=== PATIENT | female | born 1955 | race Caucasian/White ===

== ENCOUNTER → 2022-03-24 10:15 | Outpatient (CLI) | payer MEDICARE, BC, SELFPAY ==
--- NOTE | ~2022-03-24 | DEXA_ITS ---
Bone Density Report Name: GREG SUNG Age: 66 Sex: Female Ethnicity: White Date of : 1955 Indication: osteopenia; height loss; asthma or emphysema; rheumatoid arthritis; postmenopausal Referring Provider: James Hickman Study: Bone densitometry was performed. Exam Date: March 24, 2022 Accession number: [id number] Bone Density: Region BMD T-score Z-score Classification AP Spine (L1-L4) 0.894 -1.4 0.4 Osteopenia Femoral Neck (Left) 0.815 -0.3 1.2 Normal Total Hip (Left) 0.904 -0.3 0.9 Normal Femoral Neck (Right) 0.823 -0.2 1.3 Normal Total Hip (Right) 0.887 -0.5 0.8 Normal Total Hip Mean 0.896 -0.4 0.9 Normal World Health Organization criteria for BMD impression classify patients as: Normal (T-score at or above -1.0), Osteopenia (T-score between -1.0 and -2.5), or Osteoporosis (T-score at or below -2.5). 10-year Fracture Risk(1): Major Osteoporotic Fracture 8.5% Hip Fracture 0.4% Reported Risk Factors: [place] (), Neck BMD=0.815, BMI=35.2, rheumatoid arthritis (1) FRAX(R) Version 3.08. Fracture probability calculated for an untreated patient. Fracture probability may be lower if the patient has received treatment. Previous Exams: Region Exam Age BMD T-score BMD Change BMD Change Date g/cm2 vs Baseline vs Previous AP Spine(L1-L4) 03/24/2022 66 0.894 -1.4 0.002 0.002 06/10/2016 61 0.892 -1.4 Total Hip(Left) 03/24/2022 66 0.904 -0.3 -0.086* -0.086* 06/10/2016 61 0.989 0.4 Total Hip(Right) 03/24/2022 66 0.887 -0.5 -0.055* -0.055* 06/10/2016 61 0.941 0.0 *Denotes significance at 95% confidence level, LSC for AP Spine = 0.022 g/cm2, LSC for Total Hip = 0.027 g/cm2 Clinical Information Provided by Patient: Has rheumatoid arthritis Has used the following medications: Vitamin D, Calcium Has the following medical conditions: Asthma or Emphysema Patient maximum height was 67 Menopause Age: 50 Does not regularly consume dairy products Drinks caffeinated beverages Onset of menses at age 16 Number of children 4 Impression: The patient has low bone mass, based on the Total Spine T-score. The patient has an estimated ten-year risk of hip fracture of 0.4% and an estimated ten-year risk of major fracture of 8.5%, based on the WHO FRAX algorithm. The BMD for the Total Hip(Left) decreased, changing by -0.086 since the last DXA exam. The BMD for the Total Hip(
--- NOTE | ~2022-03-24 | MM_ITS ---
EXAMINATION: MM screening ana BI w stfefi HISTORY: Screening mammogram TECHNIQUE: Craniocaudal and mediolateral oblique 3-D tomosynthesis images were obtained and synthetic 2-D images were generated. CAD analysis was submitted and interpreted. COMPARISON: 06/21/2018, 06/10/2016 bilateral screening mammogram examinations BREAST PARENCHYMAL COMPOSITION: There are scattered areas of fibroglandular density. FINDINGS: There is no evidence of suspicious mass, calcification, or architectural distortion to sugg est malignancy in either breast. There has been no suspicious interval change. IMPRESSION: 1. No mammographic evidence of malignancy. 2. Recommend routine screening mammography in one year. BI-RADS Category 1: Negative Reviewed, dictated and finalized at location A.
== END ==
PROVIDERS: PCP Family Medicine; Visit Provider Family Medicine
DX: Z12.31 Encounter for screening mammogram for malignant neoplasm of breast (principal); Z78.0 Asymptomatic menopausal state; M85.88 Other specified disorders of bone density and structure, other site
CPT/HCPCS: 77063; 77067; 77080

== ENCOUNTER 2022-07-23 07:52 | Outpatient (CLI) | payer MEDICARE, BC, SELFPAY | END 2022-07-23 07:53 | disposition home or self-care (01) | LOC: ANHAUDIO 07:53 | PROVIDERS: PCP Family Medicine; Visit Provider Physician Assistant Medical | DX: H90.3 Sensorineural hearing loss, bilateral (principal) | CPT/HCPCS: 92557; 92567 ==

== ENCOUNTER 2022-11-11 09:00 | Outpatient (RCR) | payer MEDICARE, BC, SELFPAY | END 2022-11-11 23:59 | disposition home or self-care (01) | LOC: ANHAUDIO 09:00 | PROVIDERS: PCP Family Medicine; Visit Provider Family Medicine | DX: Z46.1 Encounter for fitting and adjustment of hearing aid (principal); H91.90 Unspecified hearing loss, unspecified ear | CPT/HCPCS: 99199; V5261 ==

== ENCOUNTER 2024-02-12 11:35 | Observation (INO) | payer MEDICARE, BC, SELFPAY ==
[2024-02-12] VITALS (20 sets, daily range): BP systolic 111–135; BP diastolic 62–76; PULSE 58–67; RESP 9–20; TEMP 36–36.7; O2SAT 95–100; BMI 30.6
--- NOTE | ~2024-02-12 | CT_ITS ---
EXAMINATION: CT cervical spine wo con DATE: 02/12/2024 13:34 INDICATION: Neck pain after fall TECHNIQUE: Computed tomography (CT) of the cervical spine was performed without intravenous contrast. The dose-length product was 348 mGy-cm. Automated exposure control and iterative reconstruction tech nique were employed. COMPARISON: None FINDINGS: Reversal of cervical lordosis. Craniovertebral junction is normal. Odontoid process is norm al. Severe degenerative disc disease at C4-5, C5-6 and C6-7. There is degenerative anterolisthesis at C2-3 and C3-4. No evidence for perched facet. There is multilevel uncinate and facet hypertrophy. Th ere is scarring in the lung apices. No significant paraspinal soft tissue abnormality. IMPRESSION: 1. No acute abnormality of the cervical spine. 2: Severe cervical spondylosis. Reviewed, dictated and finalized at location A.
--- NOTE | ~2024-02-12 | XR_ITS ---
XR shoulder LT min 2V 02/12/2024 13:24 Indication: Left shoulder pain Procedure: 4 views left shoulder Comparison: No prior studies for comparison. 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 No fracture or traumatic malali gnment. No soft tissue abnormality. No foreign body. Impression: 1: No acute fracture. Reviewed, dictated and finalized at location A. Impression: 1: No acute fracture.
--- NOTE | ~2024-02-12 | CT_ITS ---
EXAMINATION: CT brain wo con DATE: 02/12/2024 13:35 INDICATION: Syncope TECHNIQUE: Computed tomography (CT) of the cervical spine was performed without intravenous contrast. The dose-length product was 605 mGy-cm. Automated exposure control and iterative reconstruction tech [id number] were employed. COMPARISON: None FINDINGS: Normal brain parenchymal volume. No acute hemorrhage, infarction, mass or mass effect. No m idline shift. Basilar cisterns are patent. No ventriculomegaly.Paranasal sinuses and mastoids are pne umatized. No depressed skull fractures. IMPRESSION: 1. No acute intracranial abnormality. Reviewed, dictated and finalized at location A.
--- NOTE | ~2024-02-12 | XR_ITS ---
EXAMINATION: XR chest 1V portable 02/12/2024 13:24 INDICATION: Syncope PROCEDURE: AP portable chest COMPARISON: 10/13/2016 FINDINGS: The lungs are clear. The cardiomediastinal silhouette is within normal limits. There are no pleural effusions. There is no pneumothorax suspected. IMPRESSION: 1: NO ACUTE CARDIOPULMONARY DISEASE. Reviewed, dictated and finalized at location A.
--- NOTE | ~2024-02-12 | US_ITS ---
EXAMINATION: US carotid duplex BI DATE: 02/13/2024 10:35 INDICATION: TECHNIQUE: Grayscale, color Doppler, and pulsed Doppler images of the cervical carotid arteries were obtained. The degree of vessel stenosis is placed in one of the following categories: normal, <50%, 5 0-69%, >=70% but less than near-occlusion, near-occlusion, or total occlusion. Note that percent sten osis relative to normal distal artery lumen diameter is indirectly measured from velocity measurement s as described by Quinten, et al. Radiology 2003; 229:340-346. Notes: Normal: Peak systolic velocity <125 centimeters/sec and no plaque <50%. Peak systolic velocity <125 ( EDV <40; ICA/CCA PSV ratio <2.0; used these factors only a tandem lesions or low cardiac output or co ntralateral disease) 50-69 %: PSV 125-230 (EDV 40-100; ratio 2-4) >= 70% but less than near occlusion: PSV greater than 230 (EDV > 100; ratio> 4.0) Near Occlusion: PSV that is variable; markedly narrowed lumen Occlusion: Absent flow on color/spectral Doppler and no lumen on gomez scale. COMPARISON: None. FINDINGS: RIGHT: The right common carotid artery (CCA) peak systolic velocity (PSV) is 65 cm/s. The right internal car otid artery (ICA) PSV is 60 cm/s. The right ICA end-diastolic velocity (EDV) is 21 cm/s. The right IC A/CCA PSV ratio is 0.9. The external carotid artery (ECA) PSV is 91 cm/s. There is antegrade flow in the right vertebral artery. LEFT: The left CCA PSV is 92 cm/s. The left ICA PSV is 78 cm/s. The left ICA EDV is 26 cm/s. The left ICA/C CA PSV ratio is 0.9. The ECA PSV is 45 cm/s. There is antegrade flow in the left vertebral artery. IMPRESSION: 1. Less than 50% stenosis in the right internal carotid artery by sonographic criteria. 2. Less than 50% stenosis in the left internal carotid artery by sonographic criteria. Reviewed, dictated and finalized at location B. IMPRESSION: 1. Less than 50% stenosis in the right internal carotid artery by sonographic domo cintron. 2. Less than 50% stenosis in the left internal carotid artery by sonographic devorah villagran.
--- NOTE | ~2024-02-12 | US_ITS ---
EXAMINATION:US venous doppler LE LT INDICATION:Left calf tenderness TECHNIQUE: Multiple grayscale, color flow and Doppler images of the left lower extremity deep venous systems were obtained and reviewed. COMPARISON:No prior studies for comparison. FINDINGS: The common femoral, superficial femoral and popliteal veins demonstrate normal respiratory variation, augmentation and compressibility. Color flow is also seen within the posterior tibial, pe roneal, greater saphenous and profunda veins. IMPRESSION: 1: No lower extremity deep venous thrombosis. Reviewed, dictated and finalized at location B.
--- NOTE | 2024-02-12 11:47 | ECG_ITS ---
Measurements Intervals [place] Rate: 60 P: 50 TN: 164 QRS: 25 QRSD: 100 T: 43 QT: 448 QTc: 448 Interpretive Statements SINUS RHYTHM POSSIBLE LEFT ATRIAL ENLARGEMENT BASELINE ARTIFACT- III, AVL, V4-V5 BORDERLINE ECG NO PREVIOUS ECG AVAILABLE FOR COMPARISON Electronically Signed On 02-12-2024 12:22:12 CDT by Dionicio Kramer D.O.
--- NOTE | 2024-02-12 12:04 | ED.SYNCOPE ---
HPI - Syncope General Chief Complaint: Syncope Stated Complaint: syncope Time Seen by Provider: 02/12/24 12:01 Source: patient History of Present Illness HPI narrative: 68 years old white female came from [facility] with syncope. Patient was standing for few seconds/minutes felt weird, then ended up on the of ground shaking, clenching her fingers, and responsive lasted for 1-2 minutes then gradually back to normal. Currently patient complaining of headache, left-sided neck pain, left shoulder pain. Patient denies any palpitation, chest pain, shortness of breath prior to the blacking out. Denied having similar symptoms. Patient on Monjauro for weight loss since March 2023, new changes of the does few days ago History of bronchitis, dietary counseling for weight loss, heart palpitation, sinusitis, depression, anxiety Related Data Home Medications Medication Instructions Recorded Confirmed epinephrine 0.3 mg/0.3 mL 0.3 mg IM ONCE 10/02/19 12/26/23 injection, auto-injector (EpiPen 2-Zak) diltiazem HCl 120 mg 120 mg PO DAILY 11/11/20 12/26/23 capsule,extended release 24 hr (Cartia XT) tirzepatide (weight loss) 2.5 2.5 mg subcut WEEKLY Weightloss 12/26/23 12/26/23 mg/0.5 mL subcutaneous pen injector Allergies Allergy/AdvReac Type Severity Reaction Status Date / Time atorvastatin Allergy Unknown Unknown Verified 02/12/24 11:46 Penicillins Allergy Unknown Unknown Verified 02/12/24 11:46 pitavastatin [From Livalo] AdvReac Intermediate aching Verified 02/12/24 11:46 [facility] Past Medical History Medical History Acute bronchitis due to other specified organisms Acute dysfunction of both eustachian tubes Acute non-recurrent maxillary sinusitis Adult BMI 34.0-34.9 kg/sq m BMI 29.0-29.9,adult BMI 33.0-33.9,adult BMI 35.0-35.9,adult Cholecystectomy planned Crushing injury of right knee, initial encounter Dietary counseling and surveillance (10/13/16) Encounter for screening for lipoid disorders Heart palpitations Irregular heart beat Left maxillary sinusitis Low kidney function Postmenopausal Preoperative clearance Routine physical examination Screening for breast cancer Screening for colon cancer Urinary tract infection, site not specified Well woman exam Surgical History Surgical History H/O cardiac catheterization H/O cervical polypectomy H/O tubal ligation Family History Family History Father Family history of Parkinson's disease Family history of Alzheimer's disease Mother Family history of cardiovascular disease Heart disease Arthritis COPD (chronic obstructive pulmonary disease) Macular degeneration Sibling TIA (transient ischemic attack) Macular degeneration Heart disease Hypertension Diabetes mellitus Other Carcinoma of colon Cerebrovascular accident Family history of malignant neoplasm Family history of malignant neoplasm of uterus Social History Social History Smoking status: Never smoker Second hand tobacco smoke exposure: Yes Alcohol intake: current Alcohol use details: occasionally Substance use: never Substance use type: does not use Lack of Transportation: No Lack of Food: Never True Current Housing: I Have Housing Concerned About Future Housing: No Difficulty Paying Gas/Electric Bills: No Difficulty Paying for Meds: No Currently Unemployed: No Difficulty w/ Childcare or Family Care: No Living arrangements: alone Occupation/Education: retired Additional occupation/education comments: teacher Gender identity (if verbalized by the patient): Female Course Vital Signs Vital signs: Vital Signs Temperature 36.7 C 02/12/24 11:35 Pulse Rate 62 02/12/24 11:35 Respiratory Rate 16 02/11/
[2024-02-12 12:17] LABS: Basophils Absolute Auto 0.1 K/mm3 (0.0-0.1); Basophils Percent Auto 0.8 % (0.2-1.2); Eosinophils Absolute Auto 0.1 K/mm3 (0-0.3); Eosinophils Percent Auto 0.6 % (0-4.4); Hematocrit 43.8 % (37.0-47.0); Hemoglobin 14.4 g/dL (12.0-15.0); Immature Granulocyte Absolute 0.02 K/mm3 (0.00-0.031); Immature Granulocyte Percent A 0.2 % (0-0.5); Lymphocytes Absolute Auto 0.94 K/mm3 (0.9-3.2); Mean Corpuscular HGB Conc 32.9 g/dl (32-36); Mean Corpuscular Hemoglobin 30.2 pg (26-34); Mean Corpuscular Volume 91.8 fl (80-100); Mean Platelet Volume 9.5 fl (7.4-10.4); Monocytes Absolute Auto 0.7 K/mm3 (0.1-0.6); Monocytes Percent Auto 7.7 % (2.6-8.5); Neutrophils Absolute Auto 6.8 K/mm3 (1.3-6.7); Neutrophils Percent Auto 79.7 % (45.5-73.1); Platelet Count Result 260 k/mm3 (150-375); Red Blood Count 4.77 M/mm3 (4.2-5.4); Red Cell Distribution Width 13.2 % (11.5-14.5); White Blood Count 8.5 K/mm3 (4.5-10.0)
[2024-02-12 12:28] LABS: Alanine Aminotransferase 18 U/L (6-35); Albumin Level 4.6 g/dL (3.5-5.1); Alkaline Phosphatase 72 U/L (38-126); Anion Gap 7 mmol/L (8-16); Aspartate Amino Transferase 27 U/L (14-36); Bilirubin,Total 0.7 mg/dL (0.2-1.3); Blood Urea Nitrogen 9 mg/dL (7-17); Calcium 9.8 mg/dL (8.4-10.2); Carbon Dioxide 29 mmol/L (22-30); Chloride 103 mmol/L (98-107); Estimated CRCL calculation 54 ml/min; Estimated Glomerular Filt Rate 55; Glucose 110 mg/dL (65-110); Potassium 3.7 mmol/L (3.4-5.0); Sodium 139 mmol/L (137-145)
[2024-02-12] MEDS: ONDANSETRON INJ 4 MG/2 ML VIAL IV PUSH (12:51)
[2024-02-12] MEDS: SODIUM CHLORIDE 0.9% IV 1,000 ML 999 ML IV CONT (12:51)
[2024-02-12] MEDS: MORPHINE SULFATE (*CRX) 4 MG/ML INJ IV PUSH (12:52)
[2024-02-12 13:01] LABS: INR 0.9
[2024-02-12 13:02] LABS: Partial Thromboplastin Time 29.8 Seconds (22.3-36.8)
[2024-02-12 13:04] LABS: Creatine Kinase 76 U/L (30-135)
[2024-02-12 13:17] LABS: Troponin I < 0.012 ng/mL (0.000-0.034)
[2024-02-12 13:36] LABS: Ethanol < 10 mg/dL (<10)
[2024-02-12 14:22] LABS: Appearance Urine Clear (Clear); Color Urine Yellow (Yellow); Specific Grav Ur 1.015 (1.001-1.035); pH Urine 7.5 (5.0-9.0)
[2024-02-12 14:23] LABS: Add Urine Microscopic? NO; Bilirubin Urine Negative (Negative); Blood Urine Negative (Negative); Glucose Urine UA Negative (Negative); Ketones Urine Negative (Negative); Leukocyte Esterase Ur Negative LEU/UL (Negative); Nitrate Urine Negative (Negative); Protein Urine Negative (Negative); Urobilinogen Urine 0.2 mg/dL (<2.0)
[2024-02-12 14:42] LABS: Amphetamine Screen Urine Negative (Negative); Barbiturate Screen Urine Negative (Negative); Benzodiazepines Screen Urine Negative (Negative); Cannabinoid Screen Urine Negative (Negative); Cocaine Screen Urine Negative (Negative); Methadone Screen Urine Negative (Negative); Opiate Screen Urine Positive (Negative); Phencyclidine Screen Urine Negative (Negative)
--- NOTE | 2024-02-12 16:25 | PM.IMHP ---
H&P: HPI History of Present Illness Date/Time: 02/12/24 17:15 Chief Complaint: Syncope. Narrative: This is a pleasant 68-year-old female with history of palpitations and what sounds like coronary vasospasms, cardiac catheterization showing normal coronary arteries but revealing slow flow and myocardial bridging in the mid LAD, dyslipidemia, hypothyroidism, depression, and anxiety who presented to the emergency department via EMS from [facility] for evaluation after a syncopal episode. The patient provides the following history; her son provides additional information with the patient's permission. She is taking tirzepatide for weight loss and had an increase in dose last week. She endorses nausea after the increase in dosing and while her appetite has not been great she has been drinking quite a bit of fluid. On Tuesday night she had worsening nausea and reports having multiple episodes of emesis throughout the following day. This morning she was feeling a bit better and was able to go to [facility]. Approximately 25 minutes into the service, while standing in front of the pew, she developed a strange sensation in her head, almost like electricity, with vision changes before going unconscious. She does not recall having chest discomfort, palpitations, sensations of racing heart, shortness of breath, nausea, or vomiting prior to the episode. She fell to the ground, landing on her left side, and son reports that she was sweaty and clammy when he got to her side. She was unconscious for 1 to 2 minutes and son noticed that her hands and arms seemed to be clenched but there was no reports of typical seizure activity. She felt a bit confused when she came to but was alert and oriented after several minutes.There was no tongue bite or incontinence. In the ED she complained of pain in the left side of her head, neck, and shoulder. Images were negative for acute findings. Orthostatic vital signs were normal. EKG showed sinus rhythm with possible left atrial enlargement. Labs were pretty unremarkable. She is being admitted in this setting for further monitoring and syncope workup. Review of Systems Review of Systems: Twelve systems were reviewed and are negative except for as per HPI. 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 Peptic ulcer Postmenopausal Vitamin D deficiency Surgical History Surgical History (Updated 02/12/24 @ 21:00 by Nicole Humphreys PA-C) History of cardiac catheterization X2. 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 History of cervical polypectomy History of tubal ligation History of wisdom tooth extraction Family History Family History Father Family history of Parkinson's disease Family history of Alzheimer's disease Mother Family history of cardiovascular disease Heart disease Arthritis COPD (chronic obstructive pulmonary disease) Macular degeneration Sibling TIA (transient ischemic attack) Macular degeneration Heart disease Hypertension Diabetes mellitus Other Carcinoma of colon Cerebrovascular accident Family history of malignant neoplasm Family history of malignant neoplasm of uterus Social History Social History (Updated 02/12/24 @ 21:01 by Nicole Humphreys PA-C) Social History: Surrogate medical decision maker: Juan Pablo Leung, son. Code status: Full code. Smoking status: Never smoker Second hand tobacco smoke exposure: Yes Alcohol intake: current Alcohol use details: occasionally Substance use: never Substance use type: does not use Do You Feel Safe in your Home?: Yes Lack of Transportation: No Lack of Food: [employer]
--- NOTE | 2024-02-12 16:45 | ADMGEN ---
This patient, Yesenia Leung, was admitted to Medical Room 344-01. Patient/family oriented to hospital policies and general routines including ID bracelet, bed and alarms, visiting hours, pain management, procedures, bathroom and other care routines, personal items, smoking policy, room service/diet, and visiting hours. Information on how to activate the Rapid Response Team has been discussed. Patient/Family are encouraged to report perceived risks to care and to ask questions if they do not understand what they are told or what they should do.
[2024-02-12] MEDS: SODIUM CHLORIDE 0.9% IV 1,000 ML 100 ML IV CONT (19:38)
[2024-02-12] MEDS: ACETAMINOPHEN 325 MG TABLET 650 MG PO (21:43)
[2024-02-12] MEDS: FLUTICASONE PROPIONATE 0.05% NA SPR 16 GM BTL (*BKC) 1 SPRAY NASAL (21:43)
[2024-02-13] VITALS (7 sets, daily range): BP systolic 115–118; BP diastolic 60; PULSE 57–60; RESP 14–20; TEMP 36.2; O2SAT 97–98
--- NOTE | 2024-02-13 | ECHO_ITS ---
Patient Info Name: Yesenia Leung Age: 68 years : 1955 Gender: Female Ht: 66 in Wt: 189 lbs BSA: 2.02 m2 HR: 57 bpm BP: 133 / 73 mmHg Heart Rhythm: Sinus Rhythm Technical Quality: Fair Exam Date: 02/13/2024 9:44 AM Exam Location: Echo Lab Exam Room: 344 Patient Status: Inpatient Admit Date: 02/12/2024 Staff Ordering Physician: Nicole Humphreys PA-C Deep Fat Fry Cook: Angelia Lundy RDCS Attending Provider: Coni Higgins MD Referring Physician: Petr PERERA; Exam Type: CA echo doppler color flow Study Info Indications - Syncope Complete two-dimensional, color flow and Doppler transthoracic echocardiogram is performed. Strain analysis performed. Summary 1. Complete two-dimensional, color flow and Doppler transthoracic echocardiogram is performed. 2. Strain analysis performed. 3. Systolic anterior motion of the mitral leaflet. 4. Left ventricular chamber dimension is normal. 5. Left ventricular systolic function is normal, estimated at 65-70%. 6. There is mild asymmetric septal increased left ventricular wall thickness. 7. The left ventricular diastolic function is grade I diastolic dysfunction. 8. Global longitudinal strain is normal at -19 %. 9. There is mild aortic valve regurgitation. 10. There is mild tricuspid valve regurgitation. 11. There is mild pulmonic regurgitation. Left Ventricle Left ventricular chamber dimension is normal. Left ventricular systolic function is normal, estimated at 65-70%. There is mild asymmetric septal increased left ventricular wall thickness. The left ventricular diastolic function is grade I diastolic dysfunction. Global longitudinal strain is normal at -19 %. Right Ventricle Right ventricular chamber dimension is normal. Right ventricular systolic function is normal. Left Atria Left atrial chamber dimension is normal. Right Atria Right atrial chamber dimension is normal. Atrial Septum Intact interatrial septum visualized by color flow imaging. Aortic Valve The aortic valve is trileaflet. There is mild aortic valve sclerosis. There is no aortic valve stenosis. There is mild aortic valve regurgitation. Pulmonic Valve The pulmonic valve is normal. There is no pulmonic valve stenosis. There is mild pulmonic regurgitation. Mitral Valve There is no mitral valve stenosis. There is trace mitral valve regurgitation. Systolic anterior motion of the mitral leaflet. Tricuspid Valve The tricuspid valve leaflets are normal. There is no significant tricuspid valve stenosis. There is mild tricuspid valve regurgitation. No pulmonary hypertension, estimated pulmonary arterial systolic pressure is 34 mmHg. Pericardium/Pleural The pericardium appears normal. There is no pericardial effusion. Inferior Vena Cava Normal inferior vena cava with >50% collapse upon inspiration consistent with normal right atrial pressure, 10 mmHg. Aorta The aortic root size at the sinus of Valsalva is normal. Left Ventricular Outflow Tract Name Value Normal LVOT 2D LVOT Diameter 2.0 cm LVOT Doppler LVOT Peak Gradient 6 mmHg LVOT Mean Gradient 4 mmHg LVOT VTI
[2024-02-13] MEDS: LEVOTHYROXINE SODIUM 112 MCG TABLET PO (05:39)
[2024-02-13 06:32] LABS: Anion Gap 3 mmol/L (8-16); Blood Urea Nitrogen 7 mg/dL (7-17); Calcium 8.9 mg/dL (8.4-10.2); Carbon Dioxide 29 mmol/L (22-30); Chloride 105 mmol/L (98-107); Estimated CRCL calculation 60 ml/min; Estimated Glomerular Filt Rate > 60; Glucose 82 mg/dL (65-110); Magnesium 1.9 mg/dL (1.6-2.3); Potassium 3.6 mmol/L (3.4-5.0); Sodium 137 mmol/L (137-145)
[2024-02-13 07:49] LABS: Thyroid Stimulating Hormone Reflex 0.684 uIU/mL (0.465-4.68)
--- NOTE | 2024-02-13 08:50 | PM.IMPN ---
Progress Note: A&P Assessment and Plan (1) Syncope: Code(s): R55 - Syncope and collapse Status: Acute Assessment and Plan: Dehydration versus vasovagal syncope versus less likely dysrhythmia Reports recent up titration of weight loss medication causing her to be nauseous and have poor p.o. intake. Also had prolong standing at [facility]. Received 2 L normal saline overnight Telemetry ordered Orthostatic blood pressures negative Echocardiogram pending Carotid duplex pending (2) Pain of left calf: Code(s): M79.662 - Pain in left lower leg Status: Acute Assessment and Plan: Concern for possible DVT Left lower extremity Doppler ordered (3) Cervical muscle strain: Code(s): S16.1XXA - Strain of muscle, fascia and tendon at neck level, initial encounter Status: Acute (4) Coronary slow-flow phenomenon: Code(s): I20.89 - Other forms of angina pectoris Status: Acute (5) Myocardial bridge: Code(s): Q24.5 - Malformation of coronary vessels Status: Acute (6) Hypothyroidism: Code(s): E03.9 - Hypothyroidism, unspecified Status: Acute Assessment and Plan: TSH 0.684 Continue with home levothyroxine dose 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 Please see H&P for further details. Interval history: 02/12: Review of Systems Review of Systems: Twelve systems were reviewed and are negative except for as per HPI. All systems reviewed & are unremarkable except as noted in HPI and below Exam Narrative: General: well appearing, well developed, well nourished, appears stated age. HEENT: normocephalic, atraumatic. Mucous membranes moist. EOMI, PERRLA, bilateral sclera anicteric, no conjunctival injection. Neck supple without JVD, lymphadenopathy, or bruit. Respiratory: clear to ascultation bilaterally. No rales/rhonic/wheezes. Cardiovascular: Regular rate and rhythm, normal S1-S2 upon ascultation. No murmurs, rubs, or clicks. PMI is nondisplaced, capillary re-fill less than 3 second. Abdomen: Soft, flat, no pulsatile masses, non-distended and non-tender. No rebound, no guarding. No CVA tenderness, no hepatosplenomegaly. Bowel sounds present to all four quadrants. No high pitch or tinkling sounds, resonant to percussion. Extremities: No cyanosis, clubbing, or edema present. Pulses are palpable 2/2. Active ROM to all four extremities. Neuro: Alert and orientated x 4. PERRLA. Cranial nerves 2-12 intact without focal deficit. Skin: Warm, dry, and intact, without rash, erythema, or lesion. Lines: Incisions: Psych: pleasant, cooperative, normal speech, normal affect, no hallucinations, no dysarthia Objective Data Vital Signs Vital Signs: Vital Signs - 24 hr 02/12/24 11:35 02/12/24 11:46 02/12/24 12:01 Temperature 98.1 F Pulse Rate 62 64 61 Respiratory Rate 16 12 10 L Blood Pressure 123/73 133/74 120/76 Pulse Oximetry 98 98 98 Oxygen Delivery Room Air 02/12/24 12:16 02/12/24 12:31 02/12/24 12:46 Temperature Pulse Rate 61 60 62 Respiratory Rate 13 15 15 Blood Pressure 132/72 119/66 132/74 Pulse Oximetry 97 97 98 Oxygen Delivery 02/12/24 13:01 02/12/24 13:16 02/12/24 14:24 Temperature Pulse Rate 60 59 L 60 Respiratory Rate 9 L 16 Blood Pressure 129/71 132/67 122/67 Pulse Oximetry 95 95 Oxygen Delivery 02/12/24 14:25 02/12/24 14:25 02/12/24 16:25 Temperature Pulse Rate 67 67 60 Respi
[2024-02-13] MEDS: ISOSORBIDE MONONITRATE 30 MG TAB.ER.24H PO (08:56)
[2024-02-13] MEDS: buPROPion HCL XL (24 HR) 150 MG TABCR 300 MG PO (08:56)
[2024-02-13] MEDS: MONTELUKAST SODIUM 10 MG TABLET BY MOUTH (08:56)
[2024-02-13] MEDS: dilTIAZem HCL CD 120 MG CAP.24HR PO (08:56)
[2024-02-13] MEDS: FLUTICASONE PROPIONATE 0.05% NA SPR 16 GM BTL (*BKC) 1 SPRAY NASAL (08:57)
[2024-02-13] MEDS: EZETIMIBE 10 MG TABLET BY MOUTH (08:57)
--- NOTE | 2024-02-13 15:50 | PM.DS ---
DS: Admitting Diagnosis Discharge Date 02-12 Admitting Diagnosis Syncopal episode DS: Discharge Diagnosis Discharge Diagnosis (1) Syncope: Code(s): R55 - Syncope and collapse Status: Acute (2) Pain of left calf: Code(s): M79.662 - Pain in left lower leg Status: Acute (3) Cervical muscle strain: Code(s): S16.1XXA - Strain of muscle, fascia and tendon at neck level, initial encounter Status: Acute (4) Coronary slow-flow phenomenon: Code(s): I20.89 - Other forms of angina pectoris Status: Acute (5) Myocardial bridge: Code(s): Q24.5 - Malformation of coronary vessels Status: Acute (6) Hypothyroidism: Code(s): E03.9 - Hypothyroidism, unspecified Status: Acute Plan (1) Syncope: ?Code(s): R55 - Syncope and collapse ?Status:?Acute ?Assessment and Plan: Dehydration versus vasovagal syncope versus less likely dysrhythmia Reports recent up titration of weight loss medication causing her to be nauseous and have poor p.o. intake.? Also had prolong standing at [facility]. Received 2 L normal saline overnight Telemetry ordered Orthostatic blood pressures negative Echocardiogram pending Carotid duplex pending(2) Pain of left calf: ?Code(s): M79.662 - Pain in left lower leg ?Status:?Acute ?Assessment and Plan: Concern for possible DVT Left lower extremity Doppler ordered(3) Cervical muscle strain: ?Code(s): S16.1XXA - Strain of muscle, fascia and tendon at neck level, initial encounter ?Status:?Acute (4) Coronary slow-flow phenomenon: ?Code(s): I20.89 - Other forms of angina pectoris ?Status:?Acute (5) Myocardial bridge: ?Code(s): Q24.5 - Malformation of coronary vessels ?Status:?Acute (6) Hypothyroidism: ?Code(s): E03.9 - Hypothyroidism, unspecified ?Status:?Acute ?Assessment and Plan: TSH 0.684 Continue with home levothyroxine dose to 112 mcg daily [employer] on monitoring for thyroid nodules given concurrent use of tirzepatide DS: Summary Hospital Course Reason for hospitalization: Syncope, dehydration Hospital Course: This is a pleasant 68-year-old female with history of palpitations and what sounds like coronary vasospasms, cardiac catheterization showing normal coronary arteries but revealing slow flow and myocardial 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 Please see H&P for further details. Interval history: 02/12: Patient is seen resting in bed with her 2 sons at bedside. She appears well and is in no acute distress. She feels that her fainting episode was likely related to her poor intake after having nausea and vomiting from her medication. Her syncopal workup has been negative. I will discharge her home today with a 48 hour Holter monitor order. She should follow with her primary care doctor in 1 week Status at Discharge Cognitive/behavioral status at discharge: A&O x4 Time Spent with Patient Time attestation: Total time spent providing and/or coordinating discharge services: 45 Exam Narrative: General: well appearing, well developed, well nourished, appears stated age. HEENT: normocephalic, atraumatic. Mucous membranes moist. EOMI, PERRLA, bilateral sclera anicteric, no conjunctival injection. Neck supple without JVD, lymphadenopathy, or bruit. Respiratory: clear to auscultation bilaterally. No rales/rhonic/wheezes. Cardiovascular: Regular rate and rhythm, normal S1-S2 upon auscultation. No murmurs, rubs, or clicks. PMI is nondisplaced, capillary re-fill less than 3 second. Abdomen: Soft, flat, no pulsatile masses, non-distended and non-tender. No rebound, no guarding. No CVA tenderness, no hepatosplenomegaly. Bowel sounds present to all four quadrants. No high pitch or tinkling sounds, resonant to percussion. Extre
--- NOTE | 2024-02-14 12:44 | P.NEURO_ITS ---
Neurology EEG Report General Information Date of Study: 01/15/24 TEST eeg DIAGNOSIS Suspected seizure CONDITION OF RECORDING Awake drowsy and sleep. EEG NUMBER [id number] CLINICAL HISTORY patient was at [facility] yesterday when she got a sharp pain in her head and lost consciousness. EEG DESCRIPTION Low-voltage beta activity seen admixed with multiple movement artifacts and poor carlos posterior gradient initially with subsequent drowsiness admixed with 6 to 7 hertz per 2nd theta activity. Bilateral symmetrical sleep activity is noted with spindles. Photic stimulation not done. Hyperventilation not done. Non paroxysmal. Nonfocal. Non lateralizing. IMPRESSION Normal record.
== END 2024-02-13 17:00 | disposition home or self-care (01) ==
LOC: ANHED 14:34 → ANH3MED 16:42
PROVIDERS: Emergency Medicine; Physician Assistant; Admitting Provider General Practice; Emergency Provider Emergency Medicine; PCP Family Medicine; Visit Provider General Practice
DX: R55 Syncope and collapse (principal); S16.1XXA Strain of muscle, fascia and tendon at neck level, initial encounter; M79.662 Pain in left lower leg; G40.89 Other seizures; I20.89 Other forms of angina pectoris; E78.5 Hyperlipidemia, unspecified; E03.9 Hypothyroidism, unspecified; F41.8 Other specified anxiety disorders; E55.9 Vitamin D deficiency, unspecified; Q24.5 Malformation of coronary vessels; I08.2 Rheumatic disorders of both aortic and tricuspid valves; Z79.85 Long-term (current) use of injectable non-insulin antidiabetic drugs; Z79.51 Long term (current) use of inhaled steroids; W18.39XA Other fall on same level, initial encounter; Z79.899 Other long term (current) drug therapy
CPT/HCPCS: 36415; 70450; 71045; 72125; 73030; 80048; 80053; 80307; 81003; 82550; 83735; 84443; 84484; 85025; 85610; 85730; 93005; 93306; 93880; 93971; 95816; 96361; 96374; 96375; 99285; A9270; G0378; J2270; J2405; J7030

== ENCOUNTER 2025-10-15 12:37 | Outpatient (CLI) | payer MEDICARE, BC, SELFPAY ==
--- NOTE | ~2025-10-15 | DEXA_ITS ---
Bone Density Report Name: GREG SUNG Age: 70 Sex: Female Ethnicity: White Date of : 1955 Indication: osteopenia; height loss; hysterectomy; Referring Provider: HIPOLITO GOLDEN Study: Bone densitometry was performed. Exam Date: October 15, 2025 Accession number: [id number] Bone Density: Region BMD T-score Z-score Classification AP Spine(L1-L4) 0.861 -1.7 0.3 Osteopenia Femoral Neck (Left) 0.729 -1.1 0.6 Osteopenia Total Hip (Left) 0.799 -1.2 0.2 Osteopenia Femoral Neck (Right) 0.753 -0.9 0.8 Normal Total Hip (Right) 0.792 -1.2 0.2 Osteopenia Total Hip Mean 0.796 -1.2 0.2 Osteopenia World Health Organization criteria for BMD impression classify patients as: Normal (T-score at or above -1.0), Osteopenia (T-score between -1.0 and -2.5), or Osteoporosis (T-score at or below -2.5). 10-year Fracture Risk(1): Major Osteoporotic Fracture 8.8% Hip Fracture 0.8% Reported Risk Factors: [place] (), Neck BMD=0.729, BMI=27.8 (1) FRAX(R) Version 3.08. Fracture probability calculated for an untreated patient. Fracture probability may be lower if the patient has received treatment. Previous Exams: -- Region Exam Age BMD T-score BMD Change BMD Change Date g/cm2 vs Baseline vs Previous -- AP Spine (L1-L4) 10/15/2025 70 0.861 -1.7 -3.5%# -3.6%# 03/24/2022 66 0.894 -1.4 0.2% 0.2% 06/10/2016 61 0.892 -1.4 Total Hip(Left) 10/15/2025 70 0.799 -1.2 -19.2%# -11.5%# 03/24/2022 66 0.904 -0.3 -8.7%* -8.7%* 06/10/2016 61 0.989 0.4 Total Hip(Right) 10/15/2025 70 0.792 -1.2 -15.9%# -10.7%# 03/24/2022 66 0.887 -0.5 -5.8%* -5.8%* 06/10/2016 61 0.941 0.0 -- *Denotes significance at 95% confidence level, LSC for AP Spine = 0.022 g/cm2, LSC for Total Hip = 0.027 g/cm2 # Denotes dissimilar scan types or analysis methods Clinical Information Provided by Patient: Has used the following medications: Vitamin D, Calcium Has the following medical conditions: Hysterectomy Patient maximum height was 67 Menopause Age: 50 Does not regularly consume dairy products Drinks caffeinated beverages Onset of menses at age 15 Number of children 4 Impression: The patient has low bone mass, based on the Total Spine T-score. The patient has an estimated ten-year risk of hip fracture of 0.8% and an estimated ten-year risk of major fracture of 8.8%, based on the WHO FRAX algorithm. Unable to evaluate interval change due to the use of different scan modes. Discussion: BONE DENSITY IS LOW AT ONE OR MORE SKELETAL SITES. This patient's lowest T-score is low at one or more skeletal sites. It meets the World Health Organization's (WHO) criteria for ?low bone mass? (T-score between -1.0 and -2.5). The patient's 10-year risk of fracture as calculated by FRAX is less than the threshold where pharmacological therapy is recommended by the National Osteoporosis Foundation (NOF). However, all treatment decisions require clinical judgment and consideration of individual patient factors, including patient preferences, comorbidities, previous drug use, risk factors not captured in the FRAX model (e.g., frailty, falls, vitamin D deficiency, increased bone turnover, interval significant decline in bone density) and possible under or overestimation of fracture risk by FRAX. The patient should follow a healthful lifestyle (good nutrition with adequate calcium and vitamin D, and appropriate weight-bearing exercise). Follow-Up: Consider repeating this study in 2 to 3 years to reassess this patient's status, or sooner if there is some new clinical indication. Reported by: JESSIKA on 10/15/2025 1:08:00 PM. Reviewed, dictated and finalized at location A.
== END 2025-10-15 12:38 | disposition home or self-care (01) ==
LOC: MICIMG 12:40
PROVIDERS: PCP Obstetrics & Gynecology
DX: Z78.0 Asymptomatic menopausal state (principal); M85.88 Other specified disorders of bone density and structure, other site; M85.852 Other specified disorders of bone density and structure, left thigh; M85.851 Other specified disorders of bone density and structure, right thigh
CPT/HCPCS: 77080